=== PATIENT | male | born 2000 | race African-American/Black ===

== ENCOUNTER 2025-05-12 11:50 | Emergency (ER) | payer OTHER ==
[~2025-05-12] VITALS: Ht 170.2 cm; Wt 91.7 kg
[2025-05-12] MEDS ORDERED: LEVO1TAB39 PO (12:57)
[2025-05-12 13:03] VITALS: BP 118/71; TEMP 99.2; O2SAT 99
== END 2025-05-12 13:09 | disposition home or self-care (01) ==
LOC: M ED 11:50
DX: L03.012 Cellulitis of left finger (principal)